=== PATIENT | female | born 1960 | race Caucasian/White ===

== ENCOUNTER → 2022-07-27 | Outpatient (CLI) | payer MEDICARE, MEDICAID, SELFPAY ==
[2022-07-27 13:55] LABS: Rheumatoid Factor < 10.0 IU/mL (<15)
[2022-07-29 11:09] LABS: Alternaria tenuis <0.10 kU/L (Class 0); Anti-Centromere B Ab <0.2 AI (0.0-0.9); Anti-Chromatin <0.2 AI (0.0-0.9); Anti-Jo <0.2 AI (0.0-0.9); Anti-Scleroderma-70 AB <0.2 AI (0.0-0.9); Ash, White <0.10 kU/L (Class 0); Aspergillus fumigatus <0.10 kU/L (Class 0); Bermuda Grass <0.10 kU/L (Class 0); Birch <0.10 kU/L (Class 0); Black Walnut <0.10 kU/L (Class 0); Cat Hair / Dander,Stand <0.10 kU/L (Class 0); Cedar, Mountain <0.10 kU/L (Class 0); Cladosporium herbarum <0.10 kU/L (Class 0); Cockroach, American <0.10 kU/L (Class 0); Cottonwood <0.10 kU/L (Class 0); D farinae Mite <0.10 kU/L (Class 0); D pteronyssinus <0.10 kU/L (Class 0); Dog Epithelia <0.10 kU/L (Class 0); Elm, American White <0.10 kU/L (Class 0); Immunoglobulin E 131 IU/mL (6-495); Maple/Box Elder <0.10 kU/L (Class 0); Mulberry, White <0.10 kU/L (Class 0); Oak, White <0.10 kU/L (Class 0); Pecan <0.10 kU/L (Class 0); Penicillium Notatum <0.10 kU/L (Class 0); Pigweed, Rough <0.10 kU/L (Class 0); RNP Ab <0.2 AI (0.0-0.9); Ragweed, Short/Common <0.10 kU/L (Class 0); Russian Thistle <0.10 kU/L (Class 0); SJOGREN'S Anti-SS-A test < 0.2 AI (0.0-0.9); SJOGREN'S Anti-SS-B test < 0.2 AI (0.0-0.9); Sheep Sorrel <0.10 kU/L (Class 0); Smith Ab <0.2 AI (0.0-0.9); Sycamore, American <0.10 kU/L (Class 0); Timothy Grass <0.10 kU/L (Class 0)
[2022-07-29 11:20] LABS: Anti-dsDNA Ab <1 IU/mL (0-9)
[2022-07-29 11:21] LABS: Mouse Urine <0.10 kU/L (Class 0)
[2022-07-30 13:03] LABS: B. pertussis IgA 1.2 index (0.0-0.9); B. pertussis IgG < 0.95 index (0.00-0.94); B. pertussis IgM < 1.0 index (0.0-0.9); Immunoglobulin E 152 IU/mL (6-495)
[2022-08-01 09:08] LABS: B PERTUSSIS DNA PCR Negative (Negative)
[2022-08-01 14:02] LABS: B PARAPERTUSSIS DNA PCR Negative (Negative)
== END | disposition home or self-care (01) ==
PROVIDERS: PCP Family Medicine; Referring Provider Internal Medicine; Visit Provider Internal Medicine
DX: R05.3 Chronic cough (principal); R93.89 Abnormal findings on diagnostic imaging of other specified body structures
CPT/HCPCS: 36415; 82785; 86003; 86225; 86235; 86431; 86615; 87633; 87798

== ENCOUNTER → 2022-08-14 | Outpatient (CLI) | payer MEDICARE, MEDICAID, SELFPAY ==
--- NOTE | 2022-08-14 14:36 | CT_ITS ---
STUDY: CTA Chest WO/W Contrast Injection 08/14/2022 9:18 PM REASON FOR EXAM: Female, 62 years old. DVT, chronic cough TECHNIQUE: The examination was performed with the intravenous administration of IV 100mL Isovue-370 contrast material. Post-processing of the angiographic images was performed, with axial imaging and 3D reconstruction. MIPS images were obtained. Individualized dose optimization techniques were used for this CT. COMPARISON: None. FINDINGS: There are degenerative changes of the shoulders. There is no pneumothorax. There is no demonstrated pleural abnormality. Peripheral pulmonary fibrosis. Normal heart and pericardium with no evidence for calcifications of the coronary arteries. Normal mediastinum. Normal hilar regions. Normal pulmonary arteries. Normal aorta arch and descending thoracic aorta. There are multi-level degenerative changes of the thoracic spine. The gallbladder is surgically absent. There are hypodensities in left kidneys. These are consistent for cysts. No follow up required. There is a large hiatal hernia composed mostly of the fundus of the stomach. CT/CTA Chest W/WO Contrast IMPRESSION: No demonstrated pulmonary embolism or arterial dissection. Peripheral pulmonary fibrosis. Electronically Signed: Chato Pradhan MD at 21:21 EDT ,
[2022-08-14 16:25] LABS: CREATININE FINGERSTICK < 0.9 mg/dL (0.55-1.02); EGFR FINGERSTICK > 60.0000 mL/min (>60)
== END | disposition home or self-care (01) ==
LOC: CT 14:36
PROVIDERS: PCP Family Medicine; Referring Provider Internal Medicine; Visit Provider Internal Medicine
DX: Z01.812 Encounter for preprocedural laboratory examination (principal); I80.209 Phlebitis and thrombophlebitis of unspecified deep vessels of unspecified lower extremity
CPT/HCPCS: 71275; Q9967

== ENCOUNTER → 2022-08-18 | Outpatient (CLI) | payer MEDICARE, MEDICAID, SELFPAY ==
--- NOTE | 2022-08-19 10:12 | PFT ---
INTRODUCTION: The patient is a 62-year-old female who presents for pulmonary function studies secondary to a diagnosis of cough. Respiratory therapy reported good patient effort. Bronchodilators were used during testing. INTERPRETATION: Forced expiration spirometry demonstrates no evidence of a large airways obstructive ventilatory defect. There was no significant response to aerosolized bronchodilators. Spirograms are of good quality and plateau normally. The respiratory flow-volume loop is normal. Body plethysmography was performed and revealed a decreased TLC to 3.83 L, 79% of predicted, indicative of a mild restrictive ventilatory impairment. Diffusing capacity by single breath CO is normal. IMPRESSION: Isolated mild restrictive ventilatory impairment.
== END | disposition home or self-care (01) ==
LOC: PSN 11:15
PROVIDERS: PCP Family Medicine; Referring Provider Internal Medicine; Visit Provider Internal Medicine
DX: R05.3 Chronic cough (principal)
CPT/HCPCS: 94060; 94726; 94729

== ENCOUNTER → 2023-02-24 | Outpatient (CLI) | payer MEDICARE, MEDICAID, SELFPAY ==
--- NOTE | 2023-02-24 13:25 | CT_ITS ---
INDICATION: FOLLOW UP MILD BIBASILAR PULMONARY FIBROSIS EXAMINATION: CT CHEST WITHOUT CONTRAST - CT Chest W/O Contrast Injection TECHNIQUE: Helically acquired images were obtained of the chest. A radiation dose optimization technique was used for this scan. Reformatted images are performed. IV Contrast dosage and agent: None. COMPARISON: CT chest August 14, 2022 FINDINGS: LUNGS, PLEURA AND LARGE AIRWAYS: When compared to prior study there is no significant change within the peripheral interseptal thickening there is seen on prior study. There is a small subpleural bleb within the left lung base similar to the prior study. There is minor bronchiectasis. No pleural effusion or thickening. No pneumothorax. THYROID: No thyroid lesions. HEART AND PERICARDIUM: There is mild cardiac enlargement. No pericardial effusion. CORONARY ARTERIES: Coronary artery calcification VESSELS: Thoracic aorta is not dilated. MEDIASTINUM AND TERRANCE: There is a 1.4 cm AP window lymph node. There is a lymph node measuring 1.4 cm in the precarinal region. There is a lymph node measuring 1 cm. There is subcarinal lymphadenopathy measuring 1.1 cm. This is stable since the prior study there is mild wall thickening of the esophagus. There is a sizable persistent hiatal hernia measuring 6.8 x 6.8 x 5.3 cm. UPPER ABDOMEN: The liver is mildly fatty infiltrated. There is postoperative change status post cholecystectomy. BONES: There is degenerative change of the thoracolumbar spine. CT/Chest without Contrast IMPRESSION: Stable lung markings. Stable peripheral areas of mild interstitial thickening minimal subpleural blebs. Suggestive of pulmonary fibrosis differential including less likely nonspecific interstitial pneumonia. No visualized focal consolidation. Stable reactive appearing mediastinal lymphadenopathy. Stable moderate sized hiatal hernia. Status post cholecystectomy. Electronically Signed: Maria Luz Kowalski MD at 13:34 EST ,
== END | disposition home or self-care (01) ==
LOC: CT 13:23
PROVIDERS: PCP Family Medicine; Referring Provider Internal Medicine; Visit Provider Internal Medicine
DX: J84.10 Pulmonary fibrosis, unspecified (principal)
CPT/HCPCS: 71250

== ENCOUNTER → 2024-02-22 | Outpatient (CLI) | payer MEDICARE, MEDICAID, SELFPAY | END | disposition home or self-care (01) | PROVIDERS: Referring Provider Internal Medicine Critical Care Medicine; Visit Provider Internal Medicine Critical Care Medicine | DX: R05.3 Chronic cough (principal); J84.10 Pulmonary fibrosis, unspecified | CPT/HCPCS: 94060; 94726; 94729 ==

== ENCOUNTER → 2025-01-24 | Outpatient (CLI) | payer MEDICARE, MEDICAID, SELFPAY ==
[2025-01-24 15:09] LABS: Hematocrit 35.5 % (37-47); Hemoglobin 10.5 g/dL (12.0-15.0); Immature Granulocytes Count 0.050 X10^3/uL (0.0-0.0); Mean Corp Hgb Conc 29.6 g/dL (32-36); Mean Corpuscular Volume 75.2 fL (81-99); Mean Platelet Vol. 9.3 fl (6.2-12.0); NRBC Flagged by Analyzer 0 % (0-5); Platelet Count 448 K/mm3 (150-450); RBC Distribution Width CV 19.2 % (11.6-14.6); RBC Distribution Width SD 51.7 fl (35.1-43.9); Red Blood Count 4.72 M/mm3 (4.2-5.4); White Blood Count 11.5 K/mm3 (4.4-11.0)
[2025-01-30 16:09] LABS: Aspirgillus flavus Negative (Neg:<1:1); Aspirgillus fumigatus Negative (Neg:<1:1); Aspirgillus niger Negative (Neg:<1:1)
== END | disposition home or self-care (01) ==
LOC: LAB 14:22
PROVIDERS: PCP Family Medicine; Referring Provider Nurse Practitioner Family; Visit Provider Nurse Practitioner Family
DX: R06.02 Shortness of breath (principal); R05.9 Cough, unspecified
CPT/HCPCS: 36415; 85025; 86606